=== PATIENT | male | born 1985 | race Caucasian/White ===

== ENCOUNTER 2016-12-07 00:32 | Day surgery (SDC) | payer OTHER ==
[~2016-12-07] VITALS: Ht 177.8 cm; Wt 68.0 kg
[~2016-12-07 00:32] MED LIST: OMEP20CA11 PO
[2016-12-07] MEDS ORDERED: Sodium Chloride LOK Flush 10 mL Syringe IV PRN (06:00)
[2016-12-07] MEDS ORDERED: fentaNYL-PF 50 mCg/mL 2 mL Inj IVPUSH PRN (06:00)
[2016-12-07 08:52] VITALS: BP 137/92; PULSE 69; RESP 16; O2SAT 100
[2016-12-07] MEDS: 0.9% Sodium Chloride 1,000 ML IV SCH ×2 (08:57→09:30)
[2016-12-07 09:37] VITALS: BP 115/76; PULSE 56; RESP 12; O2SAT 100
[2016-12-07 09:47] VITALS: BP 102/61; PULSE 65; RESP 14; O2SAT 100
[2016-12-07 09:56] VITALS: BP 100/65; PULSE 65; RESP 12; O2SAT 100
[2016-12-07 10:06] VITALS: BP 107/70; PULSE 68; RESP 16; O2SAT 100
--- NOTE | 2016-12-08 06:34 | ENDO ---
[address] [address] ENDOSCOPY PROCEDURE PATIENT: NORMA BASSETT : 1985 MR#: [id number] ADMIT: 12/07/2016 JOB ID: [id number] DATE OF SERVICE: 12/07/2016 OPERATION: Esophagogastroduodenoscopy with biopsy and colonoscopy. PREOPERATIVE DIAGNOSIS(ES): 1. Epigastric pain. 2. Rectal bleeding. POSTOPERATIVE DIAGNOSIS(ES): 1. Normal upper endoscopy, status post biopsy. 2. Normal colonoscopy. ANESTHESIA: Fentanyl 200 mcg, versed 9 mg IV administered. COMPLICATIONS: None. BLOOD LOSS: Minimal. DESCRIPTION OF PROCEDURE: After risks and benefits were explained to the patient, informed consent was obtained. After anesthesia was administered, upper endoscope was inserted into the mouth and intubated to the esophagus, stomach, second portion of duodenum, and mucosa carefully examined. After the procedure was done, the scope was withdrawn and procedure terminated. Colonoscope was then inserted per rectum to the terminal ileum. Mucosa carefully examined. Preparation of the patient was excellent. After the procedure was done, the scope was withdrawn and procedure terminated. FINDINGS: Upon inspection of the esophagus, the esophagus was normal without masses, ulcers, or lesions. Z-line located at 44 cm from incisors. Upon entering the stomach, stomach was normal without masses, ulcers, or lesions. Retroflexion was normal. Duodenal bulb, first and second portions normal. Biopsies were taken to the antrum and body of stomach. Upon inspection of the anus, no masses, hemorrhoids, ulcers, or fissures were seen throughout the entire examination. There were no polyps, masses, or lesions. The terminal ileum appeared normal. Retroflexion was normal. IMPRESSION: Normal upper endoscopy and normal colonoscopy. RECOMMENDATIONS: 1. Follow up with Liz Flores PA-C at outpatient GI Clinic. 2. Next colonoscopy should be at the age of 51 for colorectal cancer screening.
--- NOTE | 2016-12-10 12:36 | PATH ---
SURGICAL PATHOLOGY Attending Physician:Cy Escobar MD CASE STATUS: Signed Out PATIENT NAME: NORMA BASSETT PID: [id number] : 1985 DATE COLLECTED:12/07/2016 16:37 SPECIMEN: 1: Duodenum, Biopsy 2: Stomach, Antrum, Biopsy 3: Gastric, Biopsy CLINICAL HISTORY: 1. DUODENAL BXS 2. ANTRUM 3. GASTRIC BODY BXS FINAL DIAGNOSIS: 1.DUODENAL BIOPSIES: FRAGMENTS OF NORMAL-APPEARING SMALL BOWEL MUCOSA. Normal delicate mucosal villi present. Negative for significant inflammation, dysplasia and malignancy. 2.GASTRIC ANTRUM BIOPSIES: MILD CHRONIC GASTRITIS INVOLVING ANTRAL MUCOSA. Negative for evidence of Helicobacter. Negative for intestinal metaplasia. Negative for dysplasia and malignancy. 3.GASTRIC BODY BIOPSIES: MILD CHRONIC GASTRITIS INVOLVING FUNDIC MUCOSA. Negative for evidence of Helicobacter. Negative for intestinal metaplasia. Negative for dysplasia and malignancy. ICD10 K29.70 GROSS DESCRIPTION: The specimen is received in three formalin filled containers labeled with the patient's name. 1). The specimen is sublabeled "duodenal" and consists of 2 portions of tissue which aggregate to 0.3 x 0.3 x 0.2 CM. The specimen is entirely submitted in cassette 1A. 2). The specimen is sublabeled "antrum" and consists of a 0.3 x 0.3 x 0.2 CM portion of tissue which is entirely submitted in cassette 2A. 3). The specimen is sublabeled "gastric body" and consists of 2 portions of tissue which aggregate to 0.5 x 0.3 x 0.2 CM. The specimen is entirely submitted in cassette 3A. 12/07/2016 [facility] MICRO DESCRIPTION: See diagnosis. ICD-9 CODES: CPT CODES: 1: 73475 2: 93978 3: 56480 Electronically Signed Out David Flores MD [facility] Pathology [facility] [address] [place] [address] Technical component performed at [facility], [facility] [address], [place], [address]
== END 2016-12-07 23:59 | disposition home or self-care (01) ==
LOC: END 00:32
PROVIDERS: ATTEND Internal Medicine Gastroenterology
DX: K62.5 Hemorrhage of anus and rectum (principal); K29.50 Unspecified chronic gastritis without bleeding
CPT/HCPCS: 43239; 45378; 99153; G0500; J7030